=== PATIENT | male | born 1970 | race Caucasian/White ===

== ENCOUNTER → 2021-03-02 09:12 | Outpatient (CLI) | payer OTHER, SELFPAY ==
--- NOTE | ~2021-03-02 | XR_ITS ---
EXAMINATION: XR foot RT min 3V DATE: 03/02/2021 09:32 INDICATION: Right foot pain TECHNIQUE: Dorsoplantar, lateral, and 2 oblique views of the right 04/12/2014 foot were obtained. COMPARISON: 04/12/2014 FINDINGS: There is no fracture, dislocation, or subluxation. There is moderate osteoarthritis of the first metatarsophalangeal joint and multiple interphalangeal joints. Mild osteoarthritis is noted in the midfoot. The soft tissues are unremarkable. Posterior and plantar calcaneal enthesophytes are not ed. IMPRESSION: 1. No acute osseous abnormality. Reviewed, dictated and finalized at location B.
== END ==
PROVIDERS: PCP Family Medicine; Visit Provider Nurse Practitioner Family
DX: M19.071 Primary osteoarthritis, right ankle and foot (principal)
CPT/HCPCS: 73630

== ENCOUNTER → 2022-03-04 14:52 | Outpatient (CLI) | payer OTHER, SELFPAY ==
--- NOTE | ~2022-03-04 | XR_ITS ---
XR knee RT 3V 03/04/2022 15:43 Indication: Right knee pain Procedure: 4 views right knee Comparison: No prior studies for comparison. Findings: No fracture, subluxation or dislocation. There is mild osteoarthritis. No joint effusion. N o foreign bodies. Impression: 1: Mild osteoarthritis of the right knee. Reviewed, dictated and finalized at location B. Impression: 1: Mild osteoarthritis of the right knee.
== END ==
PROVIDERS: PCP Family Medicine; Visit Provider Physician Assistant Medical
DX: M17.11 Unilateral primary osteoarthritis, right knee (principal)
CPT/HCPCS: 73562